=== PATIENT | female | born 1960 | race Two or more races ===

== ENCOUNTER → 2016-11-15 | Outpatient (REF) | payer OTHER | LOC: M SFHCLERA 11:35 | PROVIDERS: ATTEND Physician Assistant | DX: J02.9 Acute pharyngitis, unspecified (principal) ==

== ENCOUNTER → 2016-11-15 | Outpatient (CLI) | payer OTHER ==
--- NOTE | 2016-11-15 15:09 | REP ---
Chest two views HISTORY: Shortness of breath Comparison: None Linear density is present in the right mid lung consistent with atelectasis or scar. The left lung is clear. The heart is normal in size. The pulmonary vasculature is normal in appearance. The bony structure is intact. IMPRESSION: Right mid lung atelectasis or scar. Signed by Elio Lacey MD 11/15/2016 12:22 P
== END ==
LOC: M LRY 12:00
PROVIDERS: ATTEND Physician Assistant
DX: R06.02 Shortness of breath (principal)

== ENCOUNTER → 2017-07-18 | Outpatient (CLI) | payer OTHER ==
[2017-07-23 00:06] LABS: Lyme Disease IgG/IgM Antibodie <0.91 ISR (0.00-0.90); Lyme Disease IgM Ab Quantitati <0.80 index (0.00-0.79)
== END ==
LOC: M LRY 11:02
DX: S30.860A Insect bite (nonvenomous) of lower back and pelvis, initial encounter (principal); X58.XXXA Exposure to other specified factors, initial encounter; Y92.9 Unspecified place or not applicable; Y93.9 Activity, unspecified; Y99.8 Other external cause status
CPT/HCPCS: 36415